=== PATIENT | male | born 1925 | race Caucasian/White ===

== ENCOUNTER 2016-11-24 11:02 | Outpatient (CLI) | payer MEDICARE, OTHER ==
--- NOTE | 2016-11-24 16:24 | PET ---
NUCLEAR MEDICINE FDG PET CT WHOLE BODY: (Positron Emission Tomography) HISTORY: 89-year-old male with new diagnosis of melanoma of the scalp. COMPARISON: None. TECHNIQUE: IV injection F-18 Fluorodeoxyglucose (FDG) dose: 9.8 mCi Whole body PET and attenuation-correction CT performed from top of scalp to bottom of feet. FINDINGS: SUV (standard uptake value) numbers given are maximum SUV's: There is a small focus of hypermetabolic activity at the vertex of the scalp, slightly to the left o f midline, with SUV of 6.3. Nearby, to the right of midline, there is another focus of hypermetaboli c activity in the vertex of the scalp with SUV of 6.7. There is yet another focus of increased super ficial soft tissue uptake in the right anterior superior temporal scalp with SUV of 7.8. There are no abnormal foci of hypermetabolic activity in the neck, chest, abdomen, pelvis, or extrem ities. Bilateral foci of hypermetabolic activity at the mandibular angles bilaterally and right posterior m axilla are consistent with odontogenic disease. IMPRESSION: 1. Three FDG-avid scalp lesions: two at the vertex and one at the right temporal region. These coul d represent biopsy sites and/or skin cancer foci. Recommend correlation with history and physical ex amination. 2. Odontogenic disease. 3. No evidence of metastasis. [facility] [place] POS: [facility]
== END 2016-11-24 11:03 | disposition home or self-care (01) ==
LOC: PET 11:02
PROVIDERS: ATTEND Internal Medicine Hematology & Oncology
DX: C43.4 Malignant melanoma of scalp and neck (principal)
CPT/HCPCS: 78816; A9552

== ENCOUNTER 2016-11-25 10:32 | Outpatient (CLI) | payer MEDICARE, OTHER ==
[~2016-11-25 10:32] MED LIST: Iopamidol 370 76% 100 ML VIAL ONE
--- NOTE | 2016-11-25 12:32 | CT ---
CT BRAIN WITH AND WITHOUT IV CONTRAST: HISTORY: Melanoma. FINDINGS: Correlation is made with the previous day's PET scan. FINDINGS: There are enhancing scalp lesions which were hypermetabolic on the PET CT from the previous day. Th jacqui include the right temporal region, right frontal and left frontal scalp close to the vertex. Th e right frontal scalp lesion causes adjacent bone erosion. There are changes of cortical atrophy and chronic small-vessel ischemic disease. The ventricular si ze is appropriate and the basilar cisterns patent. No evidence of infarct, hemorrhage, intraaxial m ass, midline shift, or abnormal extraaxial fluid collections. No abnormal areas of postcontrast enh ancement is seen in the brain. IMPRESSION: 1. No evidence of acute intracranial process or brain mass. 2. Hypermetabolic enhancing scalp lesions suspicious for melanoma with the right frontal lesion ext ending into the bone and eroding it. POS: [facility]
== END 2016-11-25 10:33 | disposition home or self-care (01) ==
LOC: SCSCT 10:32
PROVIDERS: ATTEND Internal Medicine Hematology & Oncology
DX: C43.4 Malignant melanoma of scalp and neck (principal)
CPT/HCPCS: 70470

== ENCOUNTER 2017-05-25 12:46 | Outpatient (CLI) | payer MEDICARE, OTHER ==
--- NOTE | 2017-05-25 16:38 | PET ---
PET CT: 05/25/17 HISTORY: 89-year-old male with melanoma of the scalp and neck. Exam is requested for restaging. TECHNIQUE: PET scan with CT attenuation correction is performed from the vertex to the feet following the intrav enous administration of 12 millicuries of [id number] in the right hand. Imaging was perfo rmed after an uptake interval of 56 minutes. COMPARISON: PET CT dated 11/24/16. CORRELATION: CT brain 11/25/16. FINDINGS: There are three hypermetabolic scalp lesions with the one at the vertex demonstrating a maximum SUV o f 8. There is a new focus of increased FDG localization close to the mandibular insertion of the left pterygoid musculature with an SUV of 4. No elsy hypermetabolism is seen in the neck, axillae, abdom en or pelvis. The hypermetabolic lymph nodes are seen in the mediastinum (SUV 9.4) and right hilum (6.2). Hypermeta bolic lung nodules are seen with SUVs of 8 in the right upper lobe, 3.3 in the right middle lobe and 4 in the right lower lobe. There are numerous hypermetabolic liver lesions with a maximum SUV of 15. Multiple hypermetabolic skeletal lesions are seen including the spine, pelvis, ribs, left scapula and the lower sternum. No hypermetabolic activity is seen in the new lytic lesion in the right parietal bone. No hypermetabolic adrenal, pancreatic or splenic lesions are identified. There is physiologic activity in the GI and tracts and the brain. The CT scan used for attenuation correction demonstrates bilateral pleural effusions, right larger th an left. No ascites are seen. Bilateral foci of increased FDG localization at the mandibular angles and right posterior maxilla are consistent with odontogenic disease and was seen on the previous study. IMPRESSION: Extensive metastatic disease, new since 11/24/16. POS: [facility]
== END 2017-05-25 12:47 | disposition home or self-care (01) ==
LOC: PET 12:46
PROVIDERS: ATTEND Internal Medicine Hematology & Oncology
DX: C43.4 Malignant melanoma of scalp and neck (principal); C79.51 Secondary malignant neoplasm of bone
CPT/HCPCS: 78816; A9552